=== PATIENT | male | born 1995 | race Caucasian/White ===

== ENCOUNTER 2022-05-07 22:11 | Emergency (ER) | payer OTHER, SELFPAY ==
[2022-05-07 22:21] VITALS: BP 135/85; PULSE 61; RESP 16; TEMP 36.6; O2SAT 97; BMI 30.8
[2022-05-07 22:49] VITALS: BP 128/70; PULSE 64; O2SAT 97
[2022-05-07 23:00] VITALS: BP 120/70; PULSE 57; O2SAT 96
[2022-05-07 23:30] VITALS: BP 117/64; PULSE 56; O2SAT 95
[2022-05-08] VITALS: BP 120/78; PULSE 56; O2SAT 95
[2022-05-08 00:30] VITALS: BP 119/74; PULSE 57; O2SAT 95
[2022-05-08 01:00] VITALS: BP 126/73; PULSE 51; O2SAT 95
--- NOTE | 2022-05-08 01:01 | ED.SKABFB ---
HPI - Skin/Abscess/Foreign Bdy General Chief complaint: Skin/Abscess/Foreign Body Stated complaint: ALLERGIC REACTION TO STEROID CREAM/BUTT/LT. LEG Time Seen by Provider: 05/08/22 00:26 Source: patient Mode of arrival: Ambulatory Limitations: no limitations History of Present Illness HPI narrative: This is a 18-year-old male who states he is had a rash on his left buttock for several months, he finally went to his primary care physician at the [facility] they started him on triamcinolone and CeraVe lotion. He has been using this for about a week he states he had a couple days of mild improvement sort of stopped working for a day or 2 and then today became significantly more itchy and he noticed small white spots in the rash spread a little bit farther around his inner thigh. Patient denies fevers or chills. He states it is become more painful. He states no chest pain, no shortness of breath, no nausea or vomiting no other GI or urinary symptoms, patient states rash is still fairly localized it is spread a little bit but not too significantly larger area. He states he was using some topical hydrocortisone to the area before he started the triamcinolone. He states he did not have any issues with that. He notes he is had allergies to antibiotics as a child but he also states that he would break out in frequently and they would always attributed to the antibiotics. 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 He does not have any other known skin issues the patient himself and he states no other family members with skin issues. He and his significant other state that it was sort of red flaky skin with out any papules or pustules or vesicles. Patient states it was itchy but not spreading while it was present for several months. Related Data Previous Rx's Medication Instructions Recorded cephalexin 500 mg capsule 500 mg PO Q6H 5 days #20 caps 05/08/22 Allergies Allergy/AdvReac Type Severity Reaction Status Date / Time clindamycin Allergy Verified 05/07/22 22:26 Sulfa (Sulfonamide Allergy Verified 05/07/22 22:26 Antibiotics) Review of Systems Review of Systems ROS Unobtainable: All systems reviewed & are unremarkable except as noted in HPI and below Exam Narrative Exam Narrative: GENERAL: Alert and oriented x three, female in mild distress. HEENT: Head normocephalic, atraumatic, EOMI, pupils reactive, face symmetric, moist mucous membranes NECK: Supple, full range of motion CARDIOVASCULAR: Regular rate and rhythm without murmurs, rubs or gallops. RESPIRATORY: Breath sounds equal bilaterally, no wheezes rales or rhonchi. ABDOMEN: Soft, nontender. Normoactive bowel sounds all 4 quadrants. No guarding or rebound, rigidity, no mass : No CVA tenderness EXTREMITIES: Normal range of motion, no clubbing or edema. Neurovascularly intact NEUROLOGICAL: Cranial nerves II through XII grossly intact. Moving all extremities SKIN: Warm, dry, no petechiae, patient has not erythematous macular papular rash slightly raised, there is some mild excoriation. Some of the macules have small vesicles present but do not break or drain easily. These are only over the macules and there is no pustules or blisters noted elsewhere. Rash covers the majority of the right buttock and does wrap towards he inner thigh. Patient does not have any rash elsewhere noted. Initial Vital Signs Initial Vital Signs: Vital Signs Temperature 97.9 F 05/07/22 22:21 Pulse Rate 61 05/07/22 22:21 Respiratory Rate 16 05/07/22 22:21 Blood Pressure 135/85 05/07/22 22:21 Pulse Oximetry 97 05/07/22 22:21 Oxygen Delivery Method 05/07/22 22:21 Course Orders Ordered: Discontinued Medications Cefazolin Sodium (Cephalexin 250 Mg Prepack) 1 bottle MISC SEEINSTR ONE Stop: 05/08/22 01:13 Last Admin: 05/08/22 01:23 Dose: 8 cap Documented By: LETY Diphenhydramine HCl (Diphenhydramine 25 Mg Tablet) 50 mg PO NOW ONE Stop: 05/08/22 01:13 Last Admin: 05/08/22 01:23 Dose: 50 mg Documented By: LETY Vital Signs Vital signs: Vital Signs - 8 hr 05/07/22 22:21 05/07/22 22:49 05/07/22 22:49 Temperature 97.9 F Pulse Rate 61 64 Respiratory Rate 16 Blood Pressure 135/85 128/70 Pulse Oximetry 97 97 Oxygen Delivery Method Room Air 05/07/22 23:00 05/07/22 23:00 05/07/22 23:30 Temperature Pulse Rate 57 L Respiratory Rate Blood Pressure 120/70 117/64 Pulse Oximetry 96 Oxygen Delivery Method 05/07/22 23:30 05/08/22 00:00 05/08/22 00:00 Temperature Pulse Rate 56 L 56 L Respiratory Rate Blood Pressure 120/78 Pulse Oximetry 95 95 Oxygen Delivery Method 05/08/22 00:30 05/08/22 00:30 05/08/22 01:00 Temperature Pulse Rate 57 L Respiratory Rate Blood Pressure 119/74 126/73 Pulse Oximetry 95 Oxygen Delivery Method 05/08/22 01:00 Temperature Pulse Rate 51 L Respiratory Rate Blood Pressure Pulse Oximetry 95 Oxygen Delivery Method MDM - Skin/Abscess/Foreign Bdy MDM Narrative Medical decision making narrative: This is a 26-year-old male with maculopapular erythematous rash that has been present for months who is started on triamcinolone and CeraVe lotion in the past week and he states it improved for several days and then got much worse and has developed some small vesicles rhythm macules. Possible overlying cellulitis/bacterial infection. I do not believe patient has hives as has been present for months and is a macular rash it is not the typical shingles rash. Patient does not have any blistering. Does not appear to be an allergic reaction although the CeraVe lotion is possibly causing response. Discussed with patient to stop the triamcinolone and Cerave lotion for several days oral Benadryl will do a short course of Keflex to see for any overlying infection then patient can restart the triamcinolone and see if this is helpful without the Cerave lotion that he needs to follow-up with primary care and possibly Dermatology if not improved. Discharge Plan Departure Patient Disposition: Home Clinical Impression: Rash Instructions: DI for Rash Activity Restrictions/Additional Instructions: Please follow-up with your physician if your symptoms are persisting you may end up needing to follow up with Dermatology. Recommend holding your triamcinolone and CeraVe lotion several days. Take antibiotics until completely gone. You may restart the triamcinolone after 3 or 4 days if your symptoms have improved. You can take Benadryl 1-2 tablets every 6 hours as needed. Prescription for antibiotics sent to [facility] Please return for rapidly worsening rash, fevers, increasing redness swelling or other new or concerning changes. Prescriptions: New cephalexin 500 mg capsule 500 mg PO Q6H 5 Days Qty: 20 0RF Stand Alone Forms: Patient Portal/API
[2022-05-08] MEDS: diphenhydrAMINE 25 MG TABLET 50 MG PO (01:23)
[2022-05-08] MEDS: cephALEXin 250 MG PREPACK 1 BOTTLE MISC (01:23)
== END 2022-05-08 01:32 | disposition home or self-care (01) ==
PROVIDERS: Emergency Provider Emergency Medicine
DX: R21 Rash and other nonspecific skin eruption (principal)
CPT/HCPCS: 99283